=== PATIENT | male | born 1935 | race Hispanic/Latino ===

== ENCOUNTER → 2019-08-30 14:04 | Outpatient (CLI) | payer MEDICARE, SELFPAY ==
--- NOTE | ~2019-08-30 | CT_ITS ---
EXAMINATION: CT sinus wo con DATE: 08/30/2019 14:23 INDICATION: Chronic rhinitis, postnasal drip, laryngeal pharyngeal reflux TECHNIQUE: Computed tomography (CT) of the paranasal sinuses was performed without contrast. Iterativ e reconstruction technique was employed. Exam dose: 261.43 mGy-cm total exam DLP. COMPARISON: None FINDINGS: Nasal septum is virtually midline. The nasal turbinates are prominent in size bilaterally. Interlamellar cell of both middle nasal turbinates. The ostiomeatal units are patent bilaterally. There is mild mucoperiosteal thickening of the right maxillary sinus predominantly along the medial a nd inferolateral [place]. There is minimal mucoperiosteal thickening of the left maxillary sinus and si milar distribution. There is minimal focal soft tissue thickening of the ethmoid air cells. The front al and sphenoid sinuses are normally developed and aerated. The mastoid air cells are normally developed and aerated. IMPRESSION: Minimal mucoperiosteal thickening of the maxillary sinuses and ethmoid air cells Reviewed, dictated and finalized at [facility]. Reviewed, dictated and finalized at location [facility]. 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
== END ==
PROVIDERS: Visit Provider Otolaryngology
DX: J32.0 Chronic maxillary sinusitis (principal); J31.2 Chronic pharyngitis; R09.82 Postnasal drip; K21.9 Gastro-esophageal reflux disease without esophagitis
CPT/HCPCS: 70486

== ENCOUNTER → 2020-08-03 11:18 | Outpatient (REF) | payer MEDICARE, SELFPAY | LOC: ANHLAB 11:18 | PROVIDERS: Family Provider Internal Medicine; PCP Internal Medicine; Visit Provider Nurse Practitioner | DX: L98.9 Disorder of the skin and subcutaneous tissue, unspecified (principal) | CPT/HCPCS: 88305 ==

== ENCOUNTER → 2020-10-05 07:55 | Outpatient (REF) | payer MEDICARE, SELFPAY | LOC: ANHLAB 07:55 | PROVIDERS: PCP Internal Medicine; Visit Provider Nurse Practitioner | DX: C44.229 Squamous cell carcinoma of skin of left ear and external auricular canal (principal); L57.0 Actinic keratosis | CPT/HCPCS: 88305; 88331 ==

== ENCOUNTER 2023-04-28 08:46 | Outpatient (CLI) | payer MEDICARE, SELFPAY ==
[2023-04-28 15:44] LABS: Free T4 Free Thyroxine 1.22 ng/mL (0.78-2.19)
== END 2023-04-28 08:47 | disposition home or self-care (01) ==
LOC: ANHGOSHLAB 08:47
PROVIDERS: PCP Family Medicine; Visit Provider Family Medicine
DX: E05.90 Thyrotoxicosis, unspecified without thyrotoxic crisis or storm (principal)
CPT/HCPCS: 36415; 84439; 84443

== ENCOUNTER 2023-05-16 07:15 | Outpatient (CLI) | payer MEDICARE, SELFPAY ==
--- NOTE | ~2023-05-16 | NM_ITS ---
EXAMINATION: NM thyroid scan w uptake DATE: 05/17/2023 10:15 INDICATION: Thyrotoxicosis COMPARISON: None. TECHNIQUE: 507 microcuries [id number] was administered orally in capsule form. Scintigraphic images of th e thyroid gland were obtained at 24 hours. Thyroid uptake was calculated by the technologist. FINDINGS: The thyroid uptake is 21.1% (normal 10-30%), with the right lobe measuring 7.4% uptake and the slight ly larger appearing left lobe measuring 14.1%. There is a focal hyperfunctioning nodule at the inferi or left thyroid lobe. IMPRESSION: 1. Normal 24 hour thyroid iodine uptake of 21.1%. 2. Hypofunctioning nodule in the inferior left thyroid. Recommend thyroid ultrasound for further eval uation. Reviewed, dictated and finalized at location A. DDING SPECIALIST IMPRESSION: 1. Normal 24 hour thyroid iodine uptake of 21.1%. 2. Hypofunctioning nodule in the inferior left thyroid. Recommend thyroid ultra sound for further evaluation.
== END 2023-05-16 07:16 | disposition home or self-care (01) ==
PROVIDERS: PCP Family Medicine; Visit Provider Family Medicine
DX: E04.1 Nontoxic single thyroid nodule (principal); E05.90 Thyrotoxicosis, unspecified without thyrotoxic crisis or storm
CPT/HCPCS: 78014; A9516

== ENCOUNTER → 2023-05-23 15:51 | Outpatient (CLI) | payer MEDICARE, SELFPAY ==
--- NOTE | ~2023-05-23 | US_ITS ---
EXAMINATION: US thyroid DATE: 05/23/2023 16:15 INDICATION: Nontoxic single thyroid nodule. TECHNIQUE: Multiple ultrasound images of the thyroid were obtained. COMPARISON: Thyroid scintigraphy 05/17/2023 FINDINGS: The right thyroid lobe measures 7.0 x 4.4 x 2.2 cm. The left thyroid lobe measures 8.1 x 4.2 x 4.3 c m. The thyroid is filled with solid nodules of similar ultrasound appearance without normal interven ing parenchyma. The largest nodule measures 5.0 cm in left thyroid lobe. IMPRESSION: 1. Multinodular goiter, likely not clinically significant. Reviewed, dictated and finalized at location [facility]. L SETTER
== END ==
PROVIDERS: PCP Family Medicine; Visit Provider Family Medicine
DX: E04.2 Nontoxic multinodular goiter (principal)
CPT/HCPCS: 76536

== ENCOUNTER 2024-02-15 08:47 | Outpatient (CLI) | payer MEDICARE, SELFPAY ==
[2024-02-15 13:02] LABS: Alanine Aminotransferase 27 U/L (6-50); Albumin Level 4.1 g/dL (3.5-5.1); Alkaline Phosphatase 143 U/L (38-126); Anion Gap 8 mmol/L (4-12); Aspartate Amino Transferase 69 U/L (17-59); Bilirubin,Total 0.8 mg/dL (0.2-1.3); Blood Urea Nitrogen 19 mg/dL (9-20); Calcium 8.9 mg/dL (8.4-10.2); Carbon Dioxide 31 mmol/L (22-30); Chloride 101 mmol/L (98-107); Cholesterol 141 mg/dL (0-200); Estimated Glomerular Filt Rate > 60; Glucose 96 mg/dL (65-110); HDL Direct 45 mg/dL; Potassium 3.9 mmol/L (3.4-5.0); Sodium 140 mmol/L (137-145); Triglycerides 88 mg/dL (<150)
[2024-02-15 13:13] LABS: LDL Cholesterol Direct 75 mg/dL
[2024-02-15 13:32] LABS: Thyroid Stimulating Hormone 0.125 uIU/mL (0.465-4.680)
[2024-02-15 14:09] LABS: Free T4 Free Thyroxine 1.13 ng/mL (0.78-2.19)
== END 2024-02-15 08:48 | disposition home or self-care (01) ==
LOC: ANHGOSHLAB 08:49
PROVIDERS: PCP Family Medicine; Visit Provider Family Medicine
DX: E05.90 Thyrotoxicosis, unspecified without thyrotoxic crisis or storm (principal); Z13.228 Encounter for screening for other metabolic disorders; I10 Essential (primary) hypertension; Z13.220 Encounter for screening for lipoid disorders
CPT/HCPCS: 36415; 80053; 80061; 84439; 84443

== ENCOUNTER 2024-04-01 10:03 | Outpatient (CLI) | payer MEDICARE, SELFPAY ==
--- NOTE | ~2024-04-01 | XR_ITS ---
Lumbosacral Spine: AP, oblique, and lateral views Clinical History: Pain Findings: The normal lordotic curve is maintained. And no fracture or subluxation seen. There is adva nced degenerative change at L4-L5 and L5-S1. There is severe facet arthropathy from L3 through S1. Ex tensive anterior marginal osteophytes are present throughout the lumbar spine. The sacroiliac joints are normally outlined. Impression: Moderate to advanced degenerative spondylosis, especially the lower lumbar spine, as detailed above. Reviewed, dictated and finalized at location [facility]. Impression: Moderate to advanced degenerative spondylosis, especially the lower lumbar spin e, as detailed above.
== END 2024-04-01 10:04 | disposition home or self-care (01) ==
PROVIDERS: PCP Family Medicine; Visit Provider Family Medicine
DX: M47.896 Other spondylosis, lumbar region (principal)
CPT/HCPCS: 72110